=== PATIENT | female | born 1995 | race African-American/Black ===

== ENCOUNTER 2018-11-28 06:01 | Outpatient (CLI) | payer OTHER, MEDICAID ==
[2018-11-28 06:53] LABS: APPEARANCE,URINE SLIGHTLY-CLOUDY; BILIRUBIN,URINE NEGATIVE (NEGATIVE); COLOR,URINE YELLOW; GLUCOSE, URINE NEGATIVE (NEGATIVE); KETONES,URINE NEGATIVE (NEGATIVE); LEUKOCYTE ESTERASE,URINE SMALL (NEGATIVE); NITRITE,URINE NEGATIVE (NEGATIVE); PROTEIN,URINE NEGATIVE (NEGATIVE); URINE SPECIFIC GRAVITY 1.026; UROBILINOGEN,URINE NEGATIVE mg/dL (<2.0)
[2018-11-28 07:07] LABS: URINE AMPHETAMINES SCREEN NEGATIVE; URINE BARBITURATES SCREEN NEGATIVE; URINE BENZODIAZEPINES SCREEN NEGATIVE; URINE COCAINE SCREEN NEGATIVE; URINE MARIJUANA (THC) SCREEN NEGATIVE; URINE METHADONE SCREEN NEGATIVE; URINE PHENCYCLIDINE SCREEN NEGATIVE
[2018-11-28] MEDS ORDERED: RINGERS SOLUTION,LACTATED 1,000 ML IV PRN (07:56)
[2018-11-28] MEDS ORDERED: HYDROXYZINE PAMOATE 50 MG CAPSULE PO ONE (07:57)
[2018-11-28] MEDS ORDERED: HYDROXYZINE PAMOATE 50 MG CAPSULE ONE (08:01)
--- NOTE | 2018-11-28 08:03 | EKG REPORT ---
SEVERITY:- NORMAL ECG - SINUS RHYTHM : Confirmed by: Derek Barnhart MD 28-Nov-2018 08:03:39
[2018-11-28 08:25] LABS: ABSOLUTE EOSINOPHILS # (AUTO) 0.1 10^3/uL (0.0-0.6); ABSOLUTE LYMPHOCYTES (AUTO) 1.6 10^3/uL (0.5-4.7); ABSOLUTE MONOCYTES (AUTO) 0.9 10^3/uL (0.1-1.4); ABSOLUTE NEUT (AUTO) 6.8 10^3/uL (1.7-8.2); BASOPHILS % (AUTO) 0.1 % (0-2); EOSINOPHILS % (AUTO) 0.6 % (0-6); HEMATOCRIT 29.4 % (36.0-47.0); HEMOGLOBIN 9.9 g/dL (12.0-15.5); LYMPHOCYTES % (AUTO) 16.8 % (13-45); MEAN CORPUSCULAR HEMOGLOBIN 28.8 pg (27.0-33.4); MEAN CORPUSCULAR HGB CONC 33.7 g/dL (32.0-36.0); MEAN CORPUSCULAR VOLUME 85 fl (80-97); MONOCYTES % (AUTO) 9.7 % (3-13); PLATELET COUNT 202 10^3/uL (150-450); RED BLOOD COUNT 3.44 10^6/uL (3.72-5.28); RED CELL DISTRIBUTION WIDTH 13.5 % (11.5-14.0); SEGMENTED NEUTROPHILS % (AUTO) 72.8 % (42-78); TOTAL CELLS COUNTED % (AUTO) 100 %; WHITE BLOOD COUNT 9.3 10^3/uL (4.0-10.5)
[2018-11-28 08:50] LABS: ALBUMIN 3.4 g/dL (3.5-5.0); ALKALINE PHOSPHATASE 49 U/L (38-126); ANION GAP 8 (5-19); ASPARTATE AMINO TRANSFERASE 16 U/L (14-36); BILIRUBIN,DIRECT 0.1 mg/dL (0.0-0.4); BILIRUBIN,TOTAL 0.2 mg/dL (0.2-1.3); BLOOD UREA NITROGEN 11 mg/dL (7-20); CALCIUM 8.9 mg/dL (8.4-10.2); CARBON DIOXIDE 22 mmol/L (22-30); CHLORIDE 106 mmol/L (98-107); GLUCOSE 95 mg/dL (75-110); POTASSIUM 3.8 mmol/L (3.6-5.0); TOTAL PROTEIN 6.3 g/dL (6.3-8.2)
== END 2018-11-28 09:41 | disposition home or self-care (01) ==
LOC: LC 06:01
PROVIDERS: ATTEND Obstetrics & Gynecology
PROC: 4A1HXCZ Monitoring of Products of Conception, Cardiac Rate, External Approach (ICD-10-PCS; principal; 2018-11-28)
DX: Z34.03 Encounter for supervision of normal first pregnancy, third trimester (principal)
CPT/HCPCS: 36415; 80053; 80307; 81001; 82962; 85025; 93005; 93010

== ENCOUNTER 2018-12-08 12:29 | Emergency (ER) | payer OTHER, MEDICAID ==
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
[2018-12-08 14:14] LABS: ABSOLUTE EOSINOPHILS # (AUTO) 0.1 10^3/uL (0.0-0.6); ABSOLUTE LYMPHOCYTES (AUTO) 1.7 10^3/uL (0.5-4.7); ABSOLUTE NEUT (AUTO) 5.7 10^3/uL (1.7-8.2); APPEARANCE,URINE CLEAR; BASOPHILS % (AUTO) 0.2 % (0-2); BILIRUBIN,URINE NEGATIVE (NEGATIVE); COLOR,URINE YELLOW; EOSINOPHILS % (AUTO) 0.8 % (0-6); GLUCOSE, URINE NEGATIVE (NEGATIVE); HEMATOCRIT 31.8 % (36.0-47.0); HEMOGLOBIN 10.2 g/dL (12.0-15.5); KETONES,URINE NEGATIVE (NEGATIVE); LEUKOCYTE ESTERASE,URINE MODERATE (NEGATIVE); LYMPHOCYTES % (AUTO) 19.7 % (13-45); MEAN CORPUSCULAR HEMOGLOBIN 27.6 pg (27.0-33.4); MEAN CORPUSCULAR HGB CONC 32.2 g/dL (32.0-36.0); MEAN CORPUSCULAR VOLUME 86 fl (80-97); NITRITE,URINE NEGATIVE (NEGATIVE); PLATELET COUNT 242 10^3/uL (150-450); PROTEIN,URINE NEGATIVE (NEGATIVE); RED BLOOD COUNT 3.71 10^6/uL (3.72-5.28); RED CELL DISTRIBUTION WIDTH 13.3 % (11.5-14.0); SEGMENTED NEUTROPHILS % (AUTO) 67.3 % (42-78); TOTAL CELLS COUNTED % (AUTO) 100 %; URINE SPECIFIC GRAVITY 1.021; UROBILINOGEN,URINE NEGATIVE mg/dL (<2.0); WHITE BLOOD COUNT 8.4 10^3/uL (4.0-10.5)
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
[2018-12-08 16:27] VITALS: BP 103/67
== END 2018-12-08 16:37 | disposition home or self-care (01) ==
LOC: ER 12:29
DX: O26.893 Other specified pregnancy related conditions, third trimester (principal); M54.5 Low back pain; R10.32 Left lower quadrant pain; V87.7XXA Person injured in collision between other specified motor vehicles (traffic), initial encounter; Z3A.30 30 weeks gestation of pregnancy
CPT/HCPCS: 36415; 76815; 81001; 85025; 86850; 86900; 86901; 87086; 99284

== ENCOUNTER 2018-12-08 16:26 | Outpatient (CLI) | payer OTHER, MEDICAID | END 2018-12-08 17:40 | disposition home or self-care (01) | LOC: LC 16:26 | PROVIDERS: ATTEND Obstetrics & Gynecology | PROC: 4A1HXCZ Monitoring of Products of Conception, Cardiac Rate, External Approach (ICD-10-PCS; principal; 2018-12-08) | DX: Z04.1 Encounter for examination and observation following transport accident (principal); Z3A.29 29 weeks gestation of pregnancy ==

== ENCOUNTER 2018-12-24 16:11 | Emergency (ER) | payer OTHER, MEDICAID ==
[2018-12-24 16:17] VITALS: BP 112/72
[2018-12-24] MEDS ORDERED: METOCLOPRAMIDE HCL 10 MG TABLET PO ONE (16:47)
--- NOTE | 2018-12-24 16:49 | ER Document Report ---
ED Medical Screen (RME) - General Chief Complaint: Vomiting Stated Complaint: VOMITING Time Seen by Provider: 12/24/18 16:47 Primary Care Provider: KWAN GREENE MD [Primary Care Provider] - Follow up as needed Mode of Arrival: Ambulatory Information source: Patient Notes: 23-year-old female presents to ED for complaint of nausea last night and nausea and vomiting today for the last 4 hours. She is 32 weeks . She is 1 para 0. She states she called the [employer] and they told her to come to the emergency room she would probably need IV fluids. She states she is not had any nausea or vomiting since her first trimester. She states the nausea started after eating last night she drank some jean alonso and went to bed with the nausea and vomiting about 4 hours ago. He states she does not drink smoke or use any drugs. I have greeted and performed a rapid initial assessment of this patient. A comprehensive ED assessment and evaluation of the patient, analysis of test results and completion of medical decision making process will be conducted by an additional ED providers. TRAVEL OUTSIDE OF THE [place] IN LAST 30 DAYS: No - Related Data Allergies/Adverse Reactions: No Known Allergies Allergy (Verified 12/24/18 16:42) Home Medications: Past Medical History - Social History Chew tobacco use (# tins/day): No Frequency of alcohol use: None Drug Abuse: None Renal/ Medical History: Denies: Hx Peritoneal Dialysis Physical Exam - Vital signs Vitals: Temp Pulse Resp BP Pulse Ox 98.0 F 93 16 112/72 100 12/24/18 16:16 12/24/18 16:16 12/24/18 16:16 12/24/18 16:16 12/24/18 16:16 Course - Vital Signs Vital signs: Temp Pulse Resp BP Pulse Ox 98.0 F 93 16 112/72 100 12/24/18 16:16 12/24/18 16:16 12/24/18 16:16 12/24/18 16:16 12/24/18 16:16 Doctor's Discharge - Discharge Referrals: KWAN GREENE MD [Primary Care Provider] - Follow up as needed
[2018-12-24 17:40] LABS: ABSOLUTE EOSINOPHILS # (AUTO) 0.1 10^3/uL (0.0-0.6); ABSOLUTE LYMPHOCYTES (AUTO) 1.7 10^3/uL (0.5-4.7); ABSOLUTE MONOCYTES (AUTO) 1.1 10^3/uL (0.1-1.4); ABSOLUTE NEUT (AUTO) 8.3 10^3/uL (1.7-8.2); BASOPHILS % (AUTO) 0.1 % (0-2); EOSINOPHILS % (AUTO) 0.5 % (0-6); HEMATOCRIT 32.9 % (36.0-47.0); HEMOGLOBIN 10.6 g/dL (12.0-15.5); LYMPHOCYTES % (AUTO) 15.4 % (13-45); MEAN CORPUSCULAR HEMOGLOBIN 27.5 pg (27.0-33.4); MEAN CORPUSCULAR HGB CONC 32.2 g/dL (32.0-36.0); MEAN CORPUSCULAR VOLUME 85 fl (80-97); MONOCYTES % (AUTO) 9.6 % (3-13); PLATELET COUNT 250 10^3/uL (150-450); RED BLOOD COUNT 3.86 10^6/uL (3.72-5.28); RED CELL DISTRIBUTION WIDTH 13.6 % (11.5-14.0); SEGMENTED NEUTROPHILS % (AUTO) 74.4 % (42-78); TOTAL CELLS COUNTED % (AUTO) 100 %; WHITE BLOOD COUNT 11.1 10^3/uL (4.0-10.5)
[2018-12-24 17:49] LABS: APPEARANCE,URINE CLOUDY; BILIRUBIN,URINE NEGATIVE (NEGATIVE); COLOR,URINE YELLOW; GLUCOSE, URINE NEGATIVE (NEGATIVE); KETONES,URINE 80 mg/dL (NEGATIVE); PROTEIN,URINE NEGATIVE (NEGATIVE); URINE SPECIFIC GRAVITY 1.023; UROBILINOGEN,URINE NEGATIVE mg/dL (<2.0)
[2018-12-24 17:57] LABS: ALKALINE PHOSPHATASE 69 U/L (38-126); ANION GAP 9 (5-19); ASPARTATE AMINO TRANSFERASE 17 U/L (14-36); BILIRUBIN,TOTAL 0.2 mg/dL (0.2-1.3); BLOOD UREA NITROGEN 7 mg/dL (7-20); CALCIUM 9.4 mg/dL (8.4-10.2); CARBON DIOXIDE 24 mmol/L (22-30); CHLORIDE 103 mmol/L (98-107); GLUCOSE 84 mg/dL (75-110); TOTAL PROTEIN 7.4 g/dL (6.3-8.2)
== END 2018-12-24 19:04 | disposition left against medical advice (07) ==
LOC: ER 16:11
DX: O21.2 Late vomiting of pregnancy (principal); Z3A.32 32 weeks gestation of pregnancy; Z79.899 Other long term (current) drug therapy; Z53.20 Procedure and treatment not carried out because of patient's decision for unspecified reasons
CPT/HCPCS: 36415; 80053; 81001; 83690; 85025; 87086; 99281

== ENCOUNTER 2019-02-19 00:56 | Inpatient (IN) | payer OTHER, MEDICAID ==
[2019-02-19] MEDS ORDERED: RINGERS SOLUTION,LACTATED 1,000 ML IV PRN (01:15)
[2019-02-19] MEDS ORDERED: LIDOCAINE 1% INJ-PF (10 MG/ML) 30 ML SDV ONE (01:25)
[2019-02-19] MEDS ORDERED: MISOPROSTOL 0.2 MG TABLET ONE (01:25)
[2019-02-19] MEDS ORDERED: OXYTOCIN 10 UNIT/ML VIAL ONE (01:25)
[2019-02-19] MEDS ORDERED: OXYTOCIN/NORMAL SALINE 20 UNIT/1,000 ML RTUINJ ONE ×2 (01:25→06:36)
[2019-02-19 01:26] LABS: APPEARANCE,URINE CLEAR; BILIRUBIN,URINE NEGATIVE (NEGATIVE); COLOR,URINE YELLOW; GLUCOSE, URINE NEGATIVE (NEGATIVE); KETONES,URINE TRACE mg/dL (NEGATIVE); LEUKOCYTE ESTERASE,URINE TRACE (NEGATIVE); NITRITE,URINE NEGATIVE (NEGATIVE); PROTEIN,URINE 30 mg/dL (NEGATIVE); URINE SPECIFIC GRAVITY 1.025; UROBILINOGEN,URINE NEGATIVE mg/dL (<2.0)
[2019-02-19] MEDS ORDERED: RINGERS SOLUTION,LACTATED 1,000 ML IV ONE (01:30)
[2019-02-19 01:40] LABS: ABSOLUTE LYMPHOCYTES (AUTO) 1.7 10^3/uL (0.5-4.7); ABSOLUTE MONOCYTES (AUTO) 1.1 10^3/uL (0.1-1.4); ABSOLUTE NEUT (AUTO) 6.2 10^3/uL (1.7-8.2); BASOPHILS % (AUTO) 0.1 % (0-2); EOSINOPHILS % (AUTO) 0.3 % (0-6); HEMATOCRIT 31.1 % (36.0-47.0); HEMOGLOBIN 10.2 g/dL (12.0-15.5); LYMPHOCYTES % (AUTO) 18.8 % (13-45); MEAN CORPUSCULAR HEMOGLOBIN 27.1 pg (27.0-33.4); MEAN CORPUSCULAR HGB CONC 32.8 g/dL (32.0-36.0); MEAN CORPUSCULAR VOLUME 83 fl (80-97); MONOCYTES % (AUTO) 12.4 % (3-13); PLATELET COUNT 220 10^3/uL (150-450); RED BLOOD COUNT 3.76 10^6/uL (3.72-5.28); RED CELL DISTRIBUTION WIDTH 14.8 % (11.5-14.0); SEGMENTED NEUTROPHILS % (AUTO) 68.4 % (42-78); TOTAL CELLS COUNTED % (AUTO) 100 %
[2019-02-19 01:43] LABS: URINE AMPHETAMINES SCREEN NEGATIVE; URINE BARBITURATES SCREEN NEGATIVE; URINE BENZODIAZEPINES SCREEN NEGATIVE; URINE COCAINE SCREEN NEGATIVE; URINE MARIJUANA (THC) SCREEN NEGATIVE; URINE METHADONE SCREEN NEGATIVE; URINE PHENCYCLIDINE SCREEN NEGATIVE
[2019-02-19] MEDS ORDERED: FENTANYL/BUPIVACAINE/NS/PF 300 MCG/150 ML RTUINJ EPI ONE (04:52)
[2019-02-19] MEDS ORDERED: EPHEDRINE SULFATE INJ 50 MG/1 ML AMPULE ONE (04:52)
[2019-02-19] MEDS ORDERED: BUPIVACAINE HCL 0.25 % INJ/PF (2.5 MG/1 ML) 30 ML VIAL ONE (04:52)
--- NOTE | 2019-02-19 06:28 | Admission Physical ---
Datetime Report Generated by CPN: 02/19/2019 06:27 CURRENT ADMISSION Chief Complaint: Suspected Ruptured Membranes Indication for Induction: PROM Admit Impression : Term, Intrauterine ; Ruptured Membranes Admit Plan: Admit to Unit; Initiate Labor Induction Protocol ALLERGIES Medication Allergies: No Medication Allergies: latex (02/19/2019) Latex: Latex Allergies OBSTETRICAL HISTORY EDC: 02/20/2019 00:00 : 1 Para: 0 Term: 0 : 0 SAB: 0 IAB: 0 Ectopic: 0 Livin Cesareans: 0 VBACs: 0 Multiple Births: 0 Gestational Diabetes: No Rh Sensitization: No Incompetent Cervix: No ELOY: No Infertility: No ART Treatment: No Uterine Anomaly: No IUGR: No Hx Previous C/S: No Macrosomia: No Hx Loss/Stillborn: No PIH: No Hx : No Placenta Previa/Abruption: No Depression/PP Depression: No PTL/PROM: No Post Hemorrhage: No Current Procedures: Ultrasound; NST Obstetrical History Comments: G1- current SEE RECORDS Alcohol: No Marijuana : No Cocaine: No Other Illicit Drugs: No Cigarettes: Never Smoker. [id number] MEDICAL HISTORY Diabetes: No Blood Transfusion: No Pulmonary Disease (Asthma, TB): No Breast Disease: No Hypertension: No Job Coach/Job Developer Surgery: No Heart Disease: No Hosp/Surgery: No Autoimmune Disorder: No Anesthetic Complications: No Kidney Disease: No Abnormal Pap Smear: No Neuro/Epilepsy: No Psychiatric Disorders: No Other Medical Diseases: No Hepatitis/Liver Disease: No Significant Family History: No Varicosities/Phlebitis: No Trauma/Violence : No Thyroid Dysfunction: No INFECTIOUS HISTORY Gonorrhea: No Genital Herpes: No Chlamydia: No Tuberculosis: No Syphilis: No Hepatitis: No HIV/AIDS Exposure: No Rash or Viral Illness: No HPV: No PHYSICAL EXAM General: Normal HEENT: Normal Neurologic: Normal Thyroid: Normal Heart: Normal Lungs: Normal Breast: Normal Back: Normal Abdomen: Normal Genitourinary Exam: Normal Extremities: Normal DTRs: Normal Pelvic Type: Adequate Vital Signs: Reviewed VAGINAL EXAM Dilatation: 2 Effacement: 80 Station: -2 MEMBRANES Pooling: Positive Membranes: Ruptured Amniotic Fluid Color: Clear FETUS A EGA: 39.6 Monitoring: External US FHR- Baseline: 140 Variability: Moderate 6-25bpm Accelerations: 15X15 Decelerations: None FHR Category: Category I Estimated Weight (gm): 3500 Presentation: Vertex PLANS FOR LABOR AND DELIVERY Labor and Delivery: Plan Pain Management: Epidural Benefit of Breast Feed Discussed: Yes Circumcision: N/A INFORMED CONSENT Signature: with User ID: [email or web address]
[2019-02-19] MEDS ORDERED: OXYTOCIN/NORMAL SALINE 20 UNIT/1,000 ML RTUINJ IV PRN ×2 (06:34→12:29)
[2019-02-19] MEDS ORDERED: ZOLPIDEM TARTRATE 5 MG TABLET PO PRN (12:29)
[2019-02-19] MEDS ORDERED: DIPHENHYDRAMINE HCL 25 MG CAPSULE PO PRN (12:29)
[2019-02-19] MEDS ORDERED: MEASLES,MUMPS&RUBELLA VACC/PF 0.5 ML VIAL SUBCUT PRN (12:29)
[2019-02-19] MEDS ORDERED: ACETAMINOPHEN 325 MG TABLET PO PRN (12:29)
[2019-02-19] MEDS ORDERED: NA PHOS,M-B/NA PHOS,DI-BA (ADULT) 133 ML ENEMA PR PRN (12:29)
[2019-02-19] MEDS ORDERED: PROMETHAZINE HCL 25 MG TABLET PO PRN (12:29)
[2019-02-19] MEDS ORDERED: PROMETHAZINE HCL 25 MG SUPP.RECT PR PRN (12:29)
[2019-02-19] MEDS ORDERED: GLYCERIN/WITCH HAZEL LEAF 1 EACH MED..WIPE TP PRN (12:29)
[2019-02-19] MEDS ORDERED: DIPH/PERTUSS(ACELL)/TETANUS VAC/PF 0.5 ML SYR (>=10YO) IM PRN (12:29)
[2019-02-19] MEDS ORDERED: BENZOCAINE/MENTHOL AEROSOL SPRAY 56 ML TOP PRN (12:29)
[2019-02-19] MEDS ORDERED: PSEUDOEPHEDRINE HCL 30 MG TABLET PO PRN (12:29)
[2019-02-19] MEDS ORDERED: ACETAMINOPHEN WITH CODEINE #3 TABLET PO PRN ×2 (12:29)
[2019-02-19] MEDS ORDERED: PROMETHAZINE HCL INJ 25 MG/1 ML VIAL IV PRN (12:29)
[2019-02-19] MEDS ORDERED: DIBUCAINE 1% OINTMENT 28 GM TP PRN (12:29)
[2019-02-19] MEDS ORDERED: MAGNESIUM HYDROXIDE SUSP 30 ML UDCUP PO PRN (12:29)
--- NOTE | 2019-02-19 12:44 | Warning Signs in Babies ---
VOD Warning Signs Datetime Report Generated by N: 02/19/2019 12:44 VOD#608 -Warning Signs in Babies: Viewed with Parent(s)/Family (02/19/2019 12:20:Minoo Carrion RN)
[2019-02-19] MEDS ORDERED: BENZOCAINE/MENTHOL AEROSOL SPRAY 56 ML ONE (14:18)
[2019-02-19] MEDS ORDERED: IBUPROFEN 800 MG TABLET ONE (14:18)
--- NOTE | 2019-02-19 14:44 | Delivery Summary ---
Del Sum A-C Datetime Report Generated by CPN: 02/19/2019 14:43 DELIVERY PERSONNEL DELIVERY PERSONNEL: [id number] Delivery Doctor:: Minal Loo CNM Labor and Delivery Nurse:: Minoo Carrion RNhtml developer Nurse:: Елена Armijo RN Nursery Nurse:: Geri Barrientos RN Ice Cream Shop Associate/PIPING MANAGER: Екатерина Keen CNA II Additional Personnel: : Abhijit LEBRON RN MATERNAL INFORMATION Delivery Anesthesia: Epidural Medications After Delivery: Pitocin Drip 20 Units/1000ml NSS Delivery QBL: 50 Maternal Complications: None Provider Comments: RUTHIE VIABLE FEMALE INFANT WITH SPONTANEOUS CRY. CORD DOUBLE CLAMPED AND CUT. SPONTANEOUS PLACENTA INTACT WITH 3VC. NO LACERATIONS. MOTHER AND INFANT STABLE IN L_D#5. LABOR SUMMARY EDC: 02/20/2019 00:00 No. Babies in Womb: 1 Attempted: No Labor Anesthesia: Epidural LABOR INFORMATION Reason for Induction: Not Applicable Onset of Labor: 02/19/2019 06:44 Complete Dilatation: 02/19/2019 10:41 Oxytocin: Augmentation Group B Beta Strep: Negative Antibiotics # of Doses: 0 Steroids Given: None Reason Steroids Not Administered: Not Applicable MEMBRANES Membranes Rupture Method: Spontaneous Rupture of Membranes: 02/19/2019 01:00 Length of Rupture (hr): 11.23 Amniotic Fluid Color: Clear Amniotic Fluid Amount: Moderate STAGES OF LABOR Stage 1 hr: 3 Stage 1 min: 57 Stage 2 hr: 1 Stage 2 min: 33 Stage 3 hr: 0 Stage 3 min: 6 Total Time in Labor hr: 5 Total Time in Labor min: 36 VAGINAL DELIVERY Episiotomy: None Laceration #1: None Laceration Extension #1: N/A Laceration Repair: Not Applicable Sponge Count Correct: N/A Sharps Count Correct: N/A CSECTION DELIVERY Primary Indication: N/A Secondary Indication: N/A CSection Incidence: N/A Labor: N/A Elective: N/A CSection Incision: N/A BABY A INFORMATION Delivery Date/Time: 02/19/2019 12:14 Method of Delivery: Vaginal Born in Route : No : N/A Forceps: N/A Vacuum Extraction: N/A Shoulder Dystocia : No PRESENTATION/POSITION BABY A Presentation: Cephalic Cephalic Presentation: Vertex Vertex Position: Left Occipital Anterior Breech Presentation: N/A PLACENTA INFORMATION BABY A Placenta Delivery Time : 02/19/2019 12:20 Placenta Method of Delivery: Spontaneous Placenta Status: Delivered SCORES BABY A Heart Rate 1 min: >100 bpm Resp Effort 1 min: Good Cry Reflex Irritability 1 min: Cough or Sneeze or Pulls Away Muscle Tone 1 min: Active Motion Color 1 min: Blue/Pale Resuscitation Effort 1 min: Tactile Stimulation SCORE 1 MIN: 8 Heart Rate 5 min: >100 bpm Resp Effort 5 min: Good Cry Reflex Irritability 5 min: Cough or Sneeze or Pulls Away Muscle Tone 5 min: Active Motion Color 5 min: Body [place], Extremities Blue Resuscitation Effort 5 min: Tactile Stimulation SCORE 5 MIN: 9 INFANT INFORMATION BABY A Gestational Age at Delivery: 39.6 Gestational Status: Full Term- 39- 40.6 Weeks Outcome : Liveborn Condition : Stable Sex: Female IDENTIFICATION BABY A Verification Date/Time: 02/19/2019 14:33 ID Band Number: [id number] Mother's Name Verified: Yes RN Verifying : M Pinedaala RN Additional Verifying Personnel: Armando Carrion RN CORD INFORMATION BABY A No. Cord Vessels: 3 Nuchal Cord : N/A Cord Blood Taken: Yes-For Eval (Mom's Blood Type - or O+) Infant Suction: None ASSESSMENT BABY A Infant Complications: None Physical Findings at Delivery: Within Normal Limits Respirations: Appears Normal Skin to Skin: Yes Extractor Tender Raw Stock/ALS Called : No Infant Care By: Gege Miranda RN Transferred To: Remains with Mother BABY B INFORMATION : N/A SIGNATURES Assignment: Iqra Rodrigez MD Signature: with User ID: [email or web address] : with User ID: [email or web address] : I was personally available for consultation and serving as supervising physician for the P.
[2019-02-19] MEDS: FERROUS SULFATE 325 MG TABLET PO SCH (18:12)
[2019-02-19] MEDS: DOCUSATE SODIUM 100 MG CAPSULE PO SCH (18:12)
[2019-02-19] MEDS: IBUPROFEN 800 MG TABLET PO SCH ×3 (19:57→21:43)
[2019-02-19] MEDS: FAMOTIDINE 20 MG TABLET PO SCH (21:43)
[2019-02-20] MEDS: IBUPROFEN 800 MG TABLET PO SCH ×3 (06:02→21:25)
[2019-02-20 07:42] LABS: HEMATOCRIT 26.9 % (36.0-47.0); HEMOGLOBIN 8.7 g/dL (12.0-15.5); MEAN CORPUSCULAR HEMOGLOBIN 27.1 pg (27.0-33.4); MEAN CORPUSCULAR HGB CONC 32.5 g/dL (32.0-36.0); MEAN CORPUSCULAR VOLUME 83 fl (80-97); PLATELET COUNT 197 10^3/uL (150-450); RED BLOOD COUNT 3.22 10^6/uL (3.72-5.28); RED CELL DISTRIBUTION WIDTH 15.3 % (11.5-14.0); WHITE BLOOD COUNT 13.3 10^3/uL (4.0-10.5)
[2019-02-20] MEDS: PRENATAL VITAMIN W DHA CAPSULE PO SCH (10:36)
[2019-02-20] MEDS: FAMOTIDINE 20 MG TABLET PO SCH ×2 (10:36→21:25)
[2019-02-20] MEDS: FERROUS SULFATE 325 MG TABLET PO SCH ×2 (10:36→18:22)
[2019-02-20] MEDS: SENNOSIDES/DOCUSATE 8.6-50 MG 1 EACH TABLET PO SCH (10:36)
[2019-02-20] MEDS: DOCUSATE SODIUM 100 MG CAPSULE PO SCH ×2 (10:36→18:22)
--- NOTE | 2019-02-20 11:32 | PDOC PROGRESS REPORT ---
Subjective-OB Progress Note for:: 02/20/19 Subjective: reports bleeding slowing, pain controlled with current meds, denies needs. Physical Exam (OB) Vital Signs: Temp Pulse Resp BP Pulse Ox 97.8 F 63 17 120/76 100 02/20/19 07:58 02/20/19 07:58 02/20/19 07:58 02/20/19 07:58 02/20/19 07:58 Intake & Output 02/19/19 02/20/19 02/21/19 06:59 06:59 06:59 Weight 67.3 kg - Abdomen Description: Soft, Round Hernia Present: No Fundal Description: Firm, Midline Fundal Height: u/u - u/2 - Abdominal Distension: No distension Tenderness: Nontender - Extremities Lower extremities: Ric's sign - neg Calf: Normal, Nontender Objective-Diagnostic Laboratory: 02/20/19 07:09 02/20/19 07:09 WBC 13.3 H RBC 3.22 L Hgb 8.7 L Hct 26.9 L MCV 83 MCH 27.1 MCHC 32.5 RDW 15.3 H Plt Count 197 Assessment and Plan(PN) - Assessment and Plan (1) Normal vaginal delivery Is this a current diagnosis for this admission?: Yes (2) Premature rupture of membranes Is this a current diagnosis for this admission?: Yes - Time Spent with Patient Time with patient: Less than 15 minutes Medications reviewed and adjusted accordingly: Yes - Disposition Anticipated Discharge: Home Within: within 24 hours
[2019-02-21] MEDS: IBUPROFEN 800 MG TABLET PO SCH (05:46)
[2019-02-21 08:55] VITALS: BP 113/78
[2019-02-21] MEDS: DOCUSATE SODIUM 100 MG CAPSULE PO SCH (09:29)
[2019-02-21] MEDS: SENNOSIDES/DOCUSATE 8.6-50 MG 1 EACH TABLET PO SCH (09:29)
[2019-02-21] MEDS: FERROUS SULFATE 325 MG TABLET PO SCH (09:30)
[2019-02-21] MEDS: PRENATAL VITAMIN W DHA CAPSULE PO SCH (09:30)
[2019-02-21] MEDS: FAMOTIDINE 20 MG TABLET PO SCH (09:31)
--- NOTE | 2019-02-21 09:47 | PDOC DISCHARGE SUMMARY ---
Impression - Admit/DC Date/PCP Admission Date/Primary Care Provider: 02/19/19 01:14 OSIEL GUARDADO MD Discharge Date: 02/21/19 - PP Day #2, doing well, no complaints, O+, rubella immune, - Discharge Diagnosis (1) Anemia, Is this a current diagnosis for this admission?: Yes (2) Normal vaginal delivery Is this a current diagnosis for this admission?: Yes (3) Premature rupture of membranes Is this a current diagnosis for this admission?: Yes - Additional Information Resuscitation Status: Full Code Discharge Diet: As Tolerated, Regular Discharge Activity: Activity As Tolerated, No Lifting Over 10 Pounds, Pelvic Rest Referrals: OSIEL GUARDADO MD [Primary Care Provider] - Prescriptions: Ferrous Sulfate [Feosol 325 mg Tablet] 325 mg PO BID #60 tablet Ibuprofen [Motrin 800 mg Tablet] 800 mg PO Q8 #60 tablet Home Medications: No122/Iron/Folic Acid [ Multi Tablet] 1 each PO DAILY 11/28/18 Ferrous Sulfate [Feosol 325 mg Tablet] 325 mg PO BID #60 tablet 02/21/19 Ibuprofen [Motrin 800 mg Tablet] 800 mg PO Q8 #60 tablet 02/21/19 HPI Reason(s) for Admission: Onset of Labor Procedures: Ultrasound Intrapartum Procedure(s): Spontaneous Vaginal Delivery Hospital Course Hospital Course: routine PP course since admission Results Laboratory Results: WBC 13.3 10^3/uL (4.0-10.5) H 02/20/19 07:09 RBC 3.22 10^6/uL (3.72-5.28) L 02/20/19 07:09 Hgb 8.7 g/dL (12.0-15.5) L 02/20/19 07:09 Hct 26.9 % (36.0-47.0) L 02/20/19 07:09 MCV 83 fl (80-97) 02/20/19 07:09 MCH 27.1 pg (27.0-33.4) 02/20/19 07:09 MCHC 32.5 g/dL (32.0-36.0) 02/20/19 07:09 RDW 15.3 % (11.5-14.0) H 02/20/19 07:09 Plt Count 197 10^3/uL (150-450) 02/20/19 07:09 Lymph % (Auto) 18.8 % (13-45) 02/19/19 01:26 [place] % (Auto) 12.4 % (3-13) 02/19/19 01:26 Eos % (Auto) 0.3 % (0-6) 02/19/19 01:26 Baso % (Auto) 0.1 % (0-2) 02/19/19 01:26 Absolute Neuts (auto) 6.2 10^3/uL (1.7-8.2) 02/19/19 01:26 Absolute Lymphs (auto) 1.7 10^3/uL (0.5-4.7) 02/19/19 01:26 Absolute Monos (auto) 1.1 10^3/uL (0.1-1.4) 02/19/19 01:26 Absolute Eos (auto) 0.0 10^3/uL (0.0-0.6) 02/19/19 01:26 Absolute Basos (auto) 0.0 10^3/uL (0.0-0.2) 02/19/19 01:26 Seg Neutrophils % 68.4 % (42-78) 02/19/19 01:26 Urine Color YELLOW 02/19/19 01:02 Urine Appearance CLEAR 02/19/19 01:02 Urine pH 6.0 (5.0-9.0) 02/19/19 01:02 Ur Specific [place] 1.025 02/19/19 01:02 Urine Protein 30 mg/dL (NEGATIVE) H 02/19/19 01:02 Urine Glucose (UA) NEGATIVE mg/dL (NEGATIVE) 02/19/19 01:02 Urine Ketones TRACE mg/dL (NEGATIVE) H 02/19/19 01:02 Urine Blood NEGATIVE (NEGATIVE) 02/19/19 01:02 Urine Nitrite NEGATIVE (NEGATIVE) 02/19/19 01:02 Urine Bilirubin NEGATIVE (NEGATIVE) 02/19/19 01:02 Urine Urobilinogen NEGATIVE mg/dL (<2.0) 02/19/19 01:02 Ur Leukocyte Esterase TRACE (NEGATIVE) H 02/19/19 01:02 Urine Ascorbic Acid 40 (NEGATIVE) H 02/19/19 01:02 Urine Opiates Screen NEGATIVE 02/19/19 01:02 Urine Methadone Screen NEGATIVE 02/19/19 01:02 Ur Barbiturates Screen NEGATIVE 02/19/19 01:02 Ur Phencyclidine Scrn NEGATIVE 02/19/19 01:02 Ur Amphetamines Screen NEGATIVE 02/19/19 01:02 U Benzodiazepines Scrn NEGATIVE 02/19/19 01:02 Urine Cocaine Screen NEGATIVE 02/19/19 01:02 U Marijuana (THC) Screen NEGATIVE 02/19/19 01:02 RPR NONREACTIVE (NONREACTIVE) 02/19/19 01:26 Blood Type O POSITIVE 02/19/19 01:26 Antibody Screen NEGATIVE 02/19/19 01:26 Plan Health Concerns: increase iron rich foods Plan of Treatment: d/c to home, f/u with [facility] in 4 wks Time Spent: Less than 30 Minutes
== END 2019-02-21 12:57 | disposition home or self-care (01) | DRG 807 ==
LOC: LC 00:56 → LR 01:14 → 2S 15:15
PROVIDERS: ADMIT Obstetrics & Gynecology; ATTEND Obstetrics & Gynecology Gynecology
PROC: 10E0XZZ Delivery of Products of Conception, External Approach (ICD-10-PCS; principal; 2019-02-19)
DX: O42.92 Full-term premature rupture of membranes, unspecified as to length of time between rupture and onset of labor (principal); Z37.0 Single live birth; Z3A.39 39 weeks gestation of pregnancy; O99.02 Anemia complicating childbirth; D64.9 Anemia, unspecified
CPT/HCPCS: 36415; 80307; 81005; 85025; 85027; 86592; 86850; 86900; 86901; J2590; J3010; J3490